=== PATIENT | female | born 1985 | race Hispanic/Latino ===

== ENCOUNTER 2019-11-28 19:53 | Emergency (ER) | payer OTHER ==
[2019-11-28 20:08] VITALS: BP 126/86
[2019-11-28] MEDS ORDERED: IPRATROPIUM/ALBUTEROL SULFATE 3 ML AMPUL.NEB IH ONE (20:27)
[2019-11-28] MEDS ORDERED: predniSONE 20 MG TAB PO ONE (20:27)
[2019-11-28] MEDS ORDERED: ACETAMINOPHEN 325 MG TAB PO ONE (20:27)
[2019-11-28 20:48] LABS: Basophils # (Auto) 0.1 K/mm3 (0.0-0.1); Basophils % (Auto) 0.7 % (0.0-1.8); Eosinophils # (Auto) 0.6 K/mm3 (0.0-0.4); Eosinophils % (Auto) 7.5 % (0.0-4.3); Hematocrit 40.9 % (30.3-42.9); Lymphocytes # (Auto) 1.3 K/mm3 (1.2-5.4); Lymphocytes % (Auto) 15.7 % (13.4-35.0); Mean Corpuscular HGB Conc 34 % (30-34); Mean Corpuscular Volume 93 fl (79-97); Monocytes # (Auto) 0.9 K/mm3 (0.0-0.8); Monocytes % (Auto) 10.6 % (0.0-7.3); Platelet Count 216 K/mm3 (140-440); Red Blood Count 4.39 M/mm3 (3.65-5.03); Red Cell Distribution Width 13.1 % (13.2-15.2)
--- NOTE | 2019-11-28 20:56 | XRay Report ---
CHEST 2 VIEWS INDICATION / CLINICAL INFORMATION: Chest pain, cough, wheezing, sore throat and back pain. Has been living in a molded infested [facility] for 2 months. COMPARISON: None available. FINDINGS: SUPPORT DEVICES: None. HEART / MEDIASTINUM: The heart size and pulmonary vasculature are normal. The aorta is normal in [place]. LUNGS / PLEURA: There is a small calcified granuloma in the left lung base posteromedially. The lungs are otherwise clear. No pneumothorax. ADDITIONAL FINDINGS: No significant additional findings. IMPRESSION: No acute findings. Signer Name: Rodriguez Walter MD Signed: 11/28/2019 8:51 PM Workstation Name: [id number]
[2019-11-28 21:11] LABS: Alanine Aminotransferase 10 units/L (7-56); Albumin 4.3 g/dL (3.9-5); BUN/Creatinine Ratio 14; Blood Urea Nitrogen 13 mg/dL (7-17); Calcium 8.7 mg/dL (8.4-10.2); Hemolysis Index 10
[2019-11-28 21:29] LABS: HCG Qualitative,Urine Negative (Negative)
[2019-11-28 21:32] LABS: Bacteria,Urine 1+ /HPF (Negative); Bilirubin,Urine NEG (Negative); Blood,Urine LG (Negative); Color,Urine Yellow (Yellow); Mucus,Urine 1+ /HPF; Urobilinogen,Urine < 2.0 mg/dL (<2.0)
--- NOTE | 2019-11-28 21:55 | Emergency Department Report ---
- General Chief Complaint: Upper Respiratory Infection Stated Complaint: COUGH, CHEST PAIN AND BACK PAIN PUI?: No Source: patient Mode of arrival: Ambulatory Limitations: No Limitations - History of Present Illness Initial Comments: Patient is a 34-year-old white female with past medical history of heavy tobacco abuse who presents to the ED with complaint of acute onset persistent nasal and sinus congestion, persistent dry cough with wheezing and shortness of breath and pleuritic chest pain for the last 2 days. Patient states that she was unable to sleep in the last 24 hours because of persistent cough and pleuritic chest pain. Patient also complains of lower back pain. Patient denies dizziness, syncope, fever, chills, palpitations, sore throat, abdominal pain, nausea, vomiting, diaphoresis, neck pain, change in vision or dysuria and urinary frequency and urgency or vaginal bleeding. MD Complaint: cough, rhinorrhea, nasal congestion, other (dyspnea, wheezing; pleuritic chest pain) -: Sudden, days(s) (2) Severity: moderate Severity scale (0 -10): 6 Quality: sharp, aching Consistency: intermittent Improves With: nothing Worsens With: deep breaths Associated Symptoms: denies other symptoms, headache, rhinorrhea, nasal congestion, cough, shortness of breath. denies: fever, chills, myalgias, diaphoresis, sore throat, stiff neck, chest pain, abdominal pain, nausea, vomiting, diarrhea, dysuria, rash, confusion, right sweats, weight loss, epistaxis, hoarseness, ear pain Treatments Prior to Arrival: none - Related Data Previous Rx's Medication Instructions Recorded Last Taken Type Albuterol Sulfate [Proventil Hfa] 1 - 2 puff IH Q4H PRN #1 hfa.aer.ad 11/28/19 Unknown Rx Azithromycin [Zithromax Z-VALENTE] 250 mg PO DAILY #6 tablet 11/28/19 Unknown Rx Benzonatate [Tessalon Perles] 100 mg PO Q8HR #30 capsule 11/28/19 Unknown Rx Ibuprofen [Motrin] 600 mg PO Q8H PRN #24 tablet 11/28/19 Unknown Rx predniSONE [Deltasone] 40 mg PO QDAY #10 tab 11/28/19 Unknown Rx Allergies Allergy/AdvReac Type Severity Reaction Status Date / Time No Known Allergies Allergy Unverified 09/11/20 20:12 ED Review of Systems ROS: Stated complaint: COUGH, CHEST PAIN AND BACK PAIN Other details as noted in HPI Constitutional: denies: chills, fever Eyes: denies: eye pain, eye discharge, vision change ENT: congestion. denies: ear pain, throat pain Respiratory: cough, shortness of breath, wheezing Cardiovascular: chest pain (Pleuritic). denies: palpitations Endocrine: no symptoms reported Gastrointestinal: denies: abdominal pain, nausea, vomiting, diarrhea Genitourinary: denies: urgency, dysuria, discharge Musculoskeletal: back pain (lower back), arthralgia, myalgia. denies: joint swelling Skin: denies: rash, lesions Neurological: denies: headache, weakness, paresthesias Psychiatric: denies: anxiety, depression Hematological/Lymphatic: denies: easy bleeding, easy bruising ED Past Medical Hx - Past Medical History Previous Medical History?: No - Surgical History Past Surgical History?: No - Social History Smoking Status: Current Every Day Smoker Substance Use Type: None - Medications Home Medications: Home Medications Medication Instructions Recorded Confirmed Last Taken Type Albuterol Sulfate [Proventil Hfa] 1 - 2 puff IH Q4H PRN #1 hfa.aer.ad 11/28/19 Unknown Rx Azithromycin [Zithromax Z-VALENTE] 250 mg PO DAILY #6 tablet 11/28/19 Unknown Rx Benzonatate [Tessalon Perles] 100 mg PO Q8HR #30 capsule 11/28/19 Unknown Rx Ibuprofen [Motrin] 600 mg PO Q8H PRN #24 tablet 11/28/19 Unknown Rx predniSONE [Deltasone] 40 mg PO QDAY #10 tab 11/28/19 Unknown Rx ED Physical Exam - General Limitations: No Limitations General appearance: alert, in no apparent distress - Head Head exam: Present: atraumatic, normocephalic, normal inspection - Eye Eye exam: Present: normal appearance, PERRL, EOMI Pupils: Present: normal accommodation - ENT ENT exam: Present: normal exam, normal orophraynx, mucous membranes moist, TM's normal bilaterally, normal external ear exam - Neck Neck exam: Present: normal inspection, full ROM - Respiratory Respiratory exam: Present: wheezes (Moderately diffuse coarse wheezes throughout). Absent: respiratory distress, rales, rhonchi, chest wall tenderness, accessory muscle use, decreased breath sounds - Cardiovascular Cardiovascular Exam: Present: regular rate, normal rhythm, normal heart sounds. Absent: systolic murmur, diastolic murmur, rubs, gallop - GI/Abdominal GI/Abdominal exam: Present: soft, normal bowel sounds. Absent: tenderness, guarding, rebound, hyperactive bowel sounds, hypoactive bowel sounds - Extremities Exam Extremities exam: Present: normal inspection, full ROM, normal capillary refill - Back Exam Back exam: Present: normal inspection, full ROM. Absent: tenderness, CVA tenderness (R), CVA tenderness (L), muscle spasm, paraspinal tenderness, vertebral tenderness - Neurological Exam Neurological exam: Present: alert, oriented X3, CN II-XII intact, normal gait, reflexes normal - Psychiatric Psychiatric exam: Present: normal affect, normal mood, anxious - Skin Skin exam: Present: warm, dry, intact, normal color. Absent: rash ED Course Vital Signs 11/28/19 20:04 Temperature 98.3 F Pulse Rate 93 H Respiratory 16 Rate Blood Pressure 126/86 O2 Sat by Pulse 99 Oximetry ED Medical Decision Making - Lab Data Result diagrams: 11/28/19 20:36 11/28/19 20:36 - Radiology Data Radiology results: report reviewed, [place] [address] XRay Report Signed Patient: RORY BRICE MR#: [id number] : 1985 Acct:[id number] Age/Sex: 34 / F ADM Date: 11/28/19 Loc: ED Attending Dr: Ordering Physician: ARPITA CORONEL MD Date of Service: 11/28/19 Procedure(s): XR chest routine 2V Accession Number(s): [id number] cc: ARPITA CORONEL MD Fluoro Time In Minutes: CHEST 2 VIEWS INDICATION / CLINICAL INFORMATION: Chest pain, cough, wheezing, sore throat and back pain. Has been living in a molded infested department for 2 months. COMPARISON: None available. FINDINGS: SUPPORT DEVICES: None. HEART / MEDIASTINUM: The heart size and pulmonary vasculature are normal. The aorta is normal in caliber. LUNGS / PLEURA: There is a small calcified granuloma in the left lung base posteromedially. The lungs are otherwise clear. No pneumothorax. ADDITIONAL FINDINGS: No significant additional findings. IMPRESSION: No acute findings. Signer Name: Rodriguez Walter MD Signed: 11/28/2019 8:51 PM Workstation Name: [id number] Transcribed By: RT Dictated By: Rodriguez Walter MD Electronically Authenticated By: Rodriguez Walter MD Signed Date/Time: 11/28/192050 DD/ 49 TD/TT: - Medical Decision Making This is a 34-year-old white female with past medical history of heavy tobacco abuse who presents to the ED with complaint of acute onset persistent nasal and sinus congestion, persistent dry cough with wheezing and shortness of breath and pleuritic chest pain for the last 2 days. Patient states that she was unable to sleep in the last 24 hours because of persistent cough and pleuritic chest pain. Patient also complains of lower back pain. In the ED, patient is alert and oriented x3 and is not in distress but appears anxious and paranoid. Chest x-ray shows no acute cardiopulmonary abnormalities or pneumonitis. Lab test results were reviewed and are all nonactionable. Patient received DuoNeb treatment in the ED and also treated for pain and also given oral prednisone. On reevaluation, patient's wheezing resolved with medications. Patient was discharged home on albuterol inhaler, oral steroids and cough medications and was advised to follow-up with her primary care physician in 5 to 7 days for reevaluation or return to the ED immediately if symptoms get worse. Patient was also encouraged to consider quitting tobacco abuse. - Differential Diagnosis Bronchitis; URI; Pneumonia; asthma Critical care attestation.: If time is entered above; I have spent that time in minutes in the direct care of this critically ill patient, excluding procedure time. ED Disposition Clinical Impression: Acute upper respiratory infection, Shortness of breath, Acute costochondritis Acute bronchitis Qualifiers: Bronchitis organism: other organism Qualified Code(s): J20.8 - Acute bronchitis due to other specified organisms Disposition: DC-01 TO HOME OR SELFCARE Is pt being admited?: No Does the pt Need Aspirin: No Condition: Stable Instructions: Acute Bronchitis (ED), Upper Respiratory Infection (ED), Costochondritis (ED), How to Stop Smoking (ED) Additional Instructions: All lab test results show no acute abnormalities. Chest x-ray shows no acute cardiopulmonary abnormalities or pneumonitis. Therefore take medications with food, drink plenty of fluids and follow-up with your primary care physician in 5 to 7 days for reevaluation. Consider quitting tobacco smoking to improve your breathing. Return to the ED immediately if symptoms get worse. Prescriptions: predniSONE [Deltasone] 40 mg PO QDAY #10 tab Ibuprofen [Motrin] 600 mg PO Q8H PRN #24 tablet PRN Reason: Pain Albuterol Sulfate [Proventil Hfa] 1 - 2 puff IH Q4H PRN #1 hfa.aer.ad PRN Reason: Wheezing Benzonatate [Tessalon Perles] 100 mg PO Q8HR #30 capsule Azithromycin [Zithromax Z-VALENTE] 250 mg PO DAILY #6 tablet Referrals: [facility] [Provider Group] - 3-5 Days Forms: Work/School Release Form(ED) Time of Disposition: 21:59 Print Language: SAMI
== END 2019-11-28 22:20 | disposition home or self-care (01) ==
LOC: ED 19:53
DX: J20.9 Acute bronchitis, unspecified (principal); J06.9 Acute upper respiratory infection, unspecified; M94.0 Chondrocostal junction syndrome [Tietze]; R06.02 Shortness of breath; F17.200 Nicotine dependence, unspecified, uncomplicated; Z79.1 Long term (current) use of non-steroidal anti-inflammatories (NSAID); Z79.2 Long term (current) use of antibiotics; Z79.899 Other long term (current) drug therapy
CPT/HCPCS: 36415; 71046; 80053; 81001; 81025; 84484; 85025; 93005; 94640; 99284; J7512

== ENCOUNTER 2019-12-01 05:07 | Observation (INO) | payer OTHER ==
[2019-12-01] MEDS ORDERED: ALBUTEROL 2.5 MG/3 ML NEBU IH ONE ×4 (05:24→07:51)
[2019-12-01] MEDS ORDERED: IPRATROPIUM 0.02% NEBU 2.5 ML IH ONE ×3 (05:25→06:14)
[2019-12-01] MEDS ORDERED: SODIUM CHLORIDE 0.9% 1000 ML 1,000 ML IV ONE (06:06)
[2019-12-01] MEDS ORDERED: MAGNESIUM SULFATE 2 GM/50 ML BAG IV ONE (06:06)
[2019-12-01] MEDS ORDERED: methylPREDNISolone Sod Succinate 125 MG/2 ML INJ IV ONE (06:07)
--- NOTE | 2019-12-01 06:10 | Emergency Department Report ---
<RASHID MEJIA - Last Filed: 12/01/19 06:49> ED Shortness of Breath HPI - General Chief Complaint: Dyspnea/Respdistress Stated Complaint: RADHA Time Seen by Provider: 12/01/19 06:00 Source: patient, EMS Mode of arrival: Stretcher Limitations: No Limitations - History of Present Illness Initial Comments: 34-year-old female presents to the emergency room for shortness of breath stridor. Patient admits to using his heroin and meth yesterday. Patient states that she was seen 2 days ago and left because she felt better. Patient states that she did not get her prescription as she left AMA. Onset/Timin -: days(s) Context: other (Doing heroin and smoking meth yesterday) Associated Symptoms: cough, sputum production Treatments Prior to Arrival: none - Related Data Home Oxygen Therapy: No Previous Rx's Medication Instructions Recorded Last Taken Type Albuterol Sulfate [Proventil Hfa] 1 - 2 puff IH Q4H PRN #1 hfa.aer.ad 11/28/19 Unknown Rx Azithromycin [Zithromax Z-VALENTE] 250 mg PO DAILY #6 tablet 11/28/19 Unknown Rx Benzonatate [Tessalon Perles] 100 mg PO Q8HR #30 capsule 11/28/19 Unknown Rx Ibuprofen [Motrin] 600 mg PO Q8H PRN #24 tablet 11/28/19 Unknown Rx predniSONE [Deltasone] 40 mg PO QDAY #10 tab 11/28/19 Unknown Rx Allergies Allergy/AdvReac Type Severity Reaction Status Date / Time No Known Allergies Allergy Verified 12/01/19 05:24 ED Review of Systems Comment: All other systems reviewed and negative ED Past Medical Hx - Past Medical History Previous Medical History?: Yes Hx Psychiatric Treatment: Yes (panic attacks) - Surgical History Past Surgical History?: No - Social History Smoking Status: Current Every Day Smoker Substance Use Type: Heroin, Methamphetamines - Medications Home Medications: Home Medications Medication Instructions Recorded Confirmed Last Taken Type Albuterol Sulfate [Proventil Hfa] 1 - 2 puff IH Q4H PRN #1 hfa.aer.ad 11/28/19 Unknown Rx Azithromycin [Zithromax Z-VALENTE] 250 mg PO DAILY #6 tablet 11/28/19 Unknown Rx Benzonatate [Tessalon Perles] 100 mg PO Q8HR #30 capsule 11/28/19 Unknown Rx Ibuprofen [Motrin] 600 mg PO Q8H PRN #24 tablet 11/28/19 Unknown Rx predniSONE [Deltasone] 40 mg PO QDAY #10 tab 11/28/19 Unknown Rx ED Physical Exam - General Limitations: No Limitations General appearance: alert, in distress - Head Head exam: Present: atraumatic, normocephalic - Eye Eye exam: Present: normal appearance, EOMI - ENT ENT exam: Present: mucous membranes moist - Neck Neck exam: Present: normal inspection, full ROM - Respiratory Respiratory exam: Present: wheezes, rhonchi, accessory muscle use, prolonged expiratory - Cardiovascular Cardiovascular Exam: Present: regular rate, normal rhythm. Absent: systolic murmur, diastolic murmur, rubs, gallop - GI/Abdominal GI/Abdominal exam: Present: soft, normal bowel sounds - Extremities Exam Extremities exam: Present: normal inspection, full ROM - Back Exam Back exam: Present: normal inspection, full ROM - Neurological Exam Neurological exam: Present: alert, oriented X3, normal gait - Psychiatric Psychiatric exam: Present: normal affect, normal mood - Skin Skin exam: Present: warm, dry, intact, normal color. Absent: rash ED Medical Decision Making - Medical Decision Making 41-year-old female presents to the emergency room complaining of right ear pain that started this morning approximately 3:30 AM. Patient states that she felt a pop. She reports decreased hearing in the right ear. 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 Patient states that she is allergic to clarithromycin and NSAIDs. Patient was given albuterol 5 mg Atrovent 0.5 mg. IV Solu-Medrol 125 mg, normal saline 1 L, magnesium 2 mg IV. ED Disposition Clinical Impression: Acute bronchitis, Wheezing, Methamphetamine abuse, Heroin abuse, Noncompliance with medication regimen, Smoker, Acute respiratory distress, Hypokalemia Disposition: -09 OP ADMIT IP TO THIS HOSP Condition: Stable <GERARDO FERNANDEZ - Last Filed: 12/01/19 08:29> ED Review of Systems ROS: Stated complaint: RADHA Other details as noted in HPI ED Course Vital Signs 12/01/19 12/01/19 12/01/19 01:28 01:30 01:32 Temperature Pulse Rate 53 L 53 L 53 L Pulse Rate [ Bilateral Throughout] Respiratory 22 18 21 Rate Respiratory Rate [Bilateral Throughout] Blood Pressure Blood Pressure [Left] O2 Sat by Pulse 100 100 100 Oximetry 12/01/19 12/01/19 12/01/19 01:34 01:36 01:38 Temperature Pulse Rate 53 L 52 L 52 L Pulse Rate [ Bilateral Throughout] Respiratory 21 17 21 Rate Respiratory Rate [Bilateral Throughout] Blood Pressure Blood Pressure [Left] O2 Sat by Pulse 100 100 100 Oximetry 12/01/19 12/01/19 12/01/19 01:40 01:42 01:44 Temperature Pulse Rate 53 L 52 L 51 L Pulse Rate [ Bilateral Throughout] Respiratory 20 18 19 Rate Respiratory Rate [Bilateral Throughout] Blood Pressure Blood Pressure [Left] O2 Sat by Pulse 100 100 100 Oximetry 12/01/19 12/01/19 12/01/19 01:46 01:48 01:50 Temperature Pulse Rate 50 L 52 L 53 L Pulse Rate [ Bilateral Throughout] Respiratory 19 19 17 Rate Respiratory Rate [Bilateral Throughout] Blood Pressure Blood Pressure [Left] O2 Sat by Pulse 100 100 100 Oximetry 12/01/19 12/01/19 12/01/19 01:52 01:54 01:56 Temperature Pulse Rate 49 L 51 L 51 L Pulse Rate [ Bilateral Throughout] Respiratory 19 17 13 Rate Respiratory Rate [Bilateral Throughout] Blood Pressure Blood Pressure [Left] O2 Sat by Pulse 100 100 99 Oximetry 12/01/19 12/01/19 12/01/19 01:58 02:00 02:02 Temperature Pulse Rate 54 L 51 L 51 L Pulse Rate [ Bilateral Throughout] Respiratory 17 18 18 Rate Respiratory Rate [Bilateral Throughout] Blood Pressure Blood Pressure [Left] O2 Sat by Pulse 97 98 100 Oximetry 12/01/19 12/01/19 12/01/19 02:04 02:06 02:08 Temperature Pulse Rate 52 L 52 L 51 L Pulse Rate [ Bilateral Throughout] Respiratory 18 16 21 Rate Respiratory Rate [Bilateral Throughout] Blood Pressure Blood Pressure [Left] O2 Sat by Pulse 99 99 99 Oximetry 12/01/19 12/01/19 12/01/19 02:10 02:11 02:12 Temperature Pulse Rate 54 L 54 L 54 L Pulse Rate [ Bilateral Throughout] Respiratory 18 20 22 Rate Respiratory Rate [Bilateral Throughout] Blood Pressure 212/92 212/92 Blood Pressure [Left] O2 Sat by Pulse 97 98 100 Oximetry 12/01/19 12/01/19 12/01/19 02:14 05:28 05:29 Temperature 98.3 F Pulse Rate 51 L Pulse Rate [ 95 H Bilateral Throughout] Respiratory 22 Rate Respiratory 16 Rate [Bilateral Throughout] Blood Pressure 212/92 Blood Pressure [Left] O2 Sat by Pulse 98 Oximetry 12/01/19 12/01/19 12/01/19 06:15 06:45 08:07 Temperature Pulse Rate 90 Pulse Rate [ 89 79 Bilateral Throughout] Respiratory 22 Rate Respiratory 20 22 Rate [Bilateral Throughout] Blood Pressure Blood Pressure 146/93 [Left] O2 Sat by Pulse 98 Oximetry ED Medical Decision Making - Lab Data Result diagrams: 12/01/19 07:24 12/01/19 07:24 Lab Results 12/01/19 12/01/19 Range/Units 07:24 07:24 WBC 10.0 (4.5-11.0) K/mm3 RBC 4.10 (3.65-5.03) M/mm3 Hgb 13.1 (10.1-14.3) gm/dl Hct 37.7 (30.3-42.9) % MCV 92 (79-97) fl MCH 32 (28-32) pg MCHC 35 H (30-34) % RDW 13.3 (13.2-15.2) % Plt Count 216 (140-440) K/mm3 Lymph % (Auto) 8.2 L (13.4-35.0) % [place] % (Auto) 4.5 (0.0-7.3) % Eos % (Auto) 2.9 (0.0-4.3) % Baso % (Auto) 0.8 (0.0-1.8) % Lymph # 0.8 L (1.2-5.4) K/mm3 [place] # 0.5 (0.0-0.8) K/mm3 Eos # 0.3 (0.0-0.4) K/mm3 Baso # 0.1 (0.0-0.1) K/mm3 Seg Neutrophils % 83.6 H (40.0-70.0) % Seg Neutrophils # 8.4 H (1.8-7.7) K/mm3 Sodium 142 (137-145) mmol/L Potassium 3.4 L (3.6-5.0) mmol/L Chloride 103.6 (98-107) mmol/L Carbon Dioxide 22 (22-30) mmol/L Anion Gap 20 mmol/L BUN 11 (7-17) mg/dL Creatinine 0.7 (0.6-1.2) mg/dL Estimated GFR > 60 ml/min BUN/Creatinine Ratio 16 % Glucose 139 H (65-100) mg/dL Calcium 8.5 (8.4-10.2) mg/dL - Radiology Data Radiology results: report reviewed CHEST 1 VIEW INDICATION: sob rhonchus wheezing. COMPARISON: 11/28/2019 FINDINGS: Support devices: None. Heart: Within normal limits. Lungs/Pleura: The lungs are hyperinflated but clear. No pleural effusion or pneumothorax. Additional findings: None. IMPRESSION: No acute findings. - Medical Decision Making Patient continues to have significant wheezing despite ED treatment of multiple doses of albuterol, Atrovent, IV magnesium, Solu-Medrol, and subcu epinephrine. She presented several days ago with similar symptoms. Chest x-ray once again is unremarkable. Labs of a mild hypokalemia likely secondary to albuterol. P.o. potassium ordered. Patient will be admitted to the hospital due to persistent expiratory wheezing. No stridor on exam Critical Care Time: No Critical care attestation.: If time is entered above; I have spent that time in minutes in the direct care of this critically ill patient, excluding procedure time. ED Disposition Is pt being admited?: Yes Time of Disposition: 08:29 (Adelfo brito)
[2019-12-01] MEDS ORDERED: EPINEPHrine/PF 1 MG/1 ML INJ SUB-Q ONE (06:51)
[2019-12-01 07:42] LABS: Basophils # (Auto) 0.1 K/mm3 (0.0-0.1); Basophils % (Auto) 0.8 % (0.0-1.8); Eosinophils # (Auto) 0.3 K/mm3 (0.0-0.4); Eosinophils % (Auto) 2.9 % (0.0-4.3); Hematocrit 37.7 % (30.3-42.9); Hemoglobin 13.1 gm/dl (10.1-14.3); Lymphocytes # (Auto) 0.8 K/mm3 (1.2-5.4); Lymphocytes % (Auto) 8.2 % (13.4-35.0); Mean Corpuscular HGB Conc 35 % (30-34); Mean Corpuscular Volume 92 fl (79-97); Monocytes # (Auto) 0.5 K/mm3 (0.0-0.8); Monocytes % (Auto) 4.5 % (0.0-7.3); Platelet Count 216 K/mm3 (140-440); Red Cell Distribution Width 13.3 % (13.2-15.2)
--- NOTE | 2019-12-01 07:49 | XRay Report ---
CHEST 1 VIEW INDICATION: sob rhonchus wheezing. COMPARISON: 11/28/2019 FINDINGS: Support devices: None. Heart: Within normal limits. Lungs/Pleura: The lungs are hyperinflated but clear. No pleural effusion or pneumothorax. Additional findings: None. IMPRESSION: No acute findings. Signer Name: Wu Joshi Jr, MD Signed: 12/01/2019 7:45 AM Workstation Name: [id number]
[2019-12-01 07:59] LABS: Blood Urea Nitrogen 11 mg/dL (7-17); Calcium 8.5 mg/dL (8.4-10.2); Hemolysis Index 5
[2019-12-01 08:10] LABS: BUN/Creatinine Ratio 16
[2019-12-01] MEDS ORDERED: POTASSIUM CHLORIDE ER 20 MEQ TAB PO ONE ×2 (08:22→10:25)
[2019-12-01] MEDS ORDERED: diphenhydrAMINE 50 MG/ML VIAL IV PRN (09:17)
--- NOTE | 2019-12-01 09:22 | History and Physical Report ---
History of Present Illness Date of examination: 12/01/19 Date of admission: 12/01/19 08:30 Chief complaint: Shortness of breath History of present illness: 32-year-old female without any significant past medical history except for heroin abuse and methamphetamine abuse presents to the ED with a chief complaint of shortness of breath and productive cough for 3 to 4 days. Patient with presented to the ED several days ago but left AMA prior to treatment because she states she felt better. Patient then returned and did more methamphetamine and heroin now presents back with similar complaints including productive cough shortness of breath. Patient denies any immediate sick contacts. States she has mold in her house but her boyfriend does not get sick and has not had any symptoms. Patient denies being around anyone with fever or any coronavirus contact. Patient denies withdrawals. Patient states she stopped smoking when this happened several days ago. Patient denies any fever chills denies any recent travel. Denies any chest pain any back pain. Has had some nausea but not at present. Past History Past Medical History: denies: acute IL, atrial fib, arrhythmia, anemia, arthritis, CAD, cancer, COPD, diabetes, GERD, heart failure, HIV/AIDS, hypertension, pulmonary embolism, renal failure, seizures Past Surgical History: No surgical history Social history: single, lives with family, smoking, other (Methamphetamine and heroin). denies: alcohol abuse, prescription drug abuse Family history: no significant family history Medications and Allergies Allergies Allergy/AdvReac Type Severity Reaction Status Date / Time No Known Allergies Allergy Verified 12/01/19 05:24 Home Medications Medication Instructions Recorded Confirmed Last Taken Type Albuterol Sulfate [Proventil Hfa] 1 - 2 puff IH Q4H PRN #1 [id number].[id number] 11/28/19 Unknown Rx Azithromycin [Zithromax Z-VALENTE] 250 mg PO DAILY #6 tablet 11/28/19 Unknown Rx Benzonatate [Tessalon Perles] 100 mg PO Q8HR #30 capsule 11/28/19 Unknown Rx Ibuprofen [Motrin] 600 mg PO Q8H PRN #24 tablet 11/28/19 Unknown Rx predniSONE [Deltasone] 40 mg PO QDAY #10 tab 11/28/19 Unknown Rx Active Meds: Active Medications Albuterol/Ipratropium (Duoneb *Not For Prn Use*) 1 ampul [facility] Q6HRT [facility] Diphenhydramine HCl (Benadryl) 25 mg IV Q6H PRN PRN Reason: Itching Azithromycin 500 mg/ Sodium (Chloride) 250 mls @ 250 mls/hr IV Q24HR [facility]; Protocol Lorazepam (Ativan) 1 mg IV Q4H PRN PRN Reason: Agitation Methylprednisolone Sodium Succinate (Solu-Medrol) 40 mg IV Q8HR [facility] Review of Systems Constitutional: sweats, night sweats, fatigue, weakness, malaise, no weight loss, no weight gain, no fever, no chills, no anorexia, no lethargy, no chronic headaches, no poor appetite, no daytime sleepiness, no chronic pain Ears, nose, mouth and throat: hoarseness, no ear discharge, no decreased hearing, no nasal congestion, no bleeding gums, no dysphagia, no headache, no vertigo, no pain front of neck, no neck fullness/pressure Breasts: deferred Cardiovascular: shortness of breath, dyspnea on exertion, no chest pain, no orthopnea, no palpitations, no rapid/irregular heart beat, no edema, no syncope, no lightheadedness, no paroxysmal nocturnal dyspnea, no claudication, no phlebitis, no leg edema Respiratory: cough, cough with sputum, shortness of breath, dyspnea on exertion, congestion, no excessive sputum, no hemoptysis, no wheezing, no pleurisy, no pain, no pain on inspiration, no snoring, no sleep apnea, no respiratory infections, no home oxygen Gastrointestinal: nausea, no abdominal pain, no vomiting, no diarrhea, no constipation, no hematemesis, no loss of appetite, no early satiety, no heartburn Musculoskeletal: no shooting arm pain, no low back pain, no shooting leg pain, no leg numbness/tingling, no muscle weakness, no muscle cramps, no limitation of motion, no loss of height, no prior amputations, no arthritis Integumentary: no unusual bruising Neurological: other (Agitation), no transient paralysis, no weakness, no numbness, no seizures, no headaches, no convulsions, no change in speech, no gait dysfunction, no double vision, no loss of vision, no burning pain, no spasticity Psychiatric: anxiety, insomnia, change in appetite, change in libido, no memory loss, no change in sleep habits, no sleep disturbances, no hypersomnia, no suicidal ideation, no disorientation, no hallucinations, no anhedonia, no anxiety attacks, no difficulties concentrating, no confusion, no sa dness/tearfullness, no mood swings Endocrine: no cold intolerance, no polyphagia, no polydipsia, no increase in ring/shoe/hat size, no deepening of the voice, no palpatations, no high blood sugars, no recent glucocorticoid use Hematologic/Lymphatic: no lymphadenopathy, no lymphedema, no thrombophilia Allergic/Immunologic: no allergic rhinitis, no seasonal allergies, no other Exam - Constitutional Vitals: Temp Pulse Resp BP Pulse Ox 98.3 F 90 20 142/93 98 12/01/19 05:28 12/01/19 08:52 12/01/19 08:52 12/01/19 08:52 12/01/19 08:52 General appearance: Present: no acute distress, well-nourished - EENT Eyes: Present: PERRL ENT: hearing intact, clear oral mucosa - Neck Neck: Present: supple, normal ROM - Respiratory Respiratory effort: labored, stridor Respiratory: bilateral: CTA, diminished, wheezing - Cardiovascular Heart Sounds: Present: S1 & S2. Absent: rub, click - Extremities Extremities: pulses symmetrical, No edema Peripheral Pulses: within normal limits - Abdominal General gastrointestinal: Present: soft, non-tender, non-distended, normal bowel sounds Female genitourinary: Present: normal - Integumentary Integumentary: Present: clear, warm, dry - Musculoskeletal Musculoskeletal: gait normal, strength equal bilaterally - Psychiatric Psychiatric: appropriate mood/affect, intact judgment & insight - Neurologic Neurologic: CNII-XII intact, moves all extremities Results - Labs CBC & Chem 7: 12/01/19 07:24 12/01/19 07:24 Labs: Laboratory Last Values WBC 10.0 K/mm3 (4.5-11.0) 12/01/19 07:24 RBC 4.10 M/mm3 (3.65-5.03) 12/01/19 07:24 Hgb 13.1 gm/dl (10.1-14.3) 12/01/19 07:24 Hct 37.7 % (30.3-42.9) 12/01/19 07:24 MCV 92 fl (79-97) 12/01/19 07:24 MCH 32 pg (28-32) 12/01/19 07:24 MCHC 35 % (30-34) H 12/01/19 07:24 RDW 13.3 % (13.2-15.2) 12/01/19 07:24 Plt Count 216 K/mm3 (140-440) 12/01/19 07:24 Lymph % (Auto) 8.2 % (13.4-35.0) L 12/01/19 07:24 [place] % (Auto) 4.5 % (0.0-7.3) 12/01/19 07:24 Eos % (Auto) 2.9 % (0.0-4.3) 12/01/19 07:24 Baso % (Auto) 0.8 % (0.0-1.8) 12/01/19 07:24 Lymph # 0.8 K/mm3 (1.2-5.4) L 12/01/19 07:24 [place] # 0.5 K/mm3 (0.0-0.8) 12/01/19 07:24 Eos # 0.3 K/mm3 (0.0-0.4) 12/01/19 07:24 Baso # 0.1 K/mm3 (0.0-0.1) 12/01/19 07:24 Seg Neutrophils % 83.6 % (40.0-70.0) H 12/01/19 07:24 Seg Neutrophils # 8.4 K/mm3 (1.8-7.7) H 12/01/19 07:24 Sodium 142 mmol/L (137-145) 12/01/19 07:24 Potassium 3.4 mmol/L (3.6-5.0) L 12/01/19 07:24 Chloride 103.6 mmol/L (98-107) 12/01/19 07:24 Carbon Dioxide 22 mmol/L (22-30) 12/01/19 07:24 Anion Gap 20 mmol/L 12/01/19 07:24 BUN 11 mg/dL (7-17) 12/01/19 07:24 Creatinine 0.7 mg/dL (0.6-1.2) 12/01/19 07:24 Estimated GFR > 60 ml/min 12/01/19 07:24 BUN/Creatinine Ratio 16 % 12/01/19 07:24 Glucose 139 mg/dL (65-100) H 12/01/19 07:24 Calcium 8.5 mg/dL (8.4-10.2) 12/01/19 07:24 - Imaging and Cardiology Chest x-ray: report reviewed, image reviewed Hernandez/IV: IV Catheter Type [Left Peripheral IV Antecubital] Assessment and Plan Advance Directives: Yes VTE prophylaxis?: Chemical Plan of care discussed with patient/family: Yes - Patient Problems (1) Acute bronchitis Current Visit: Yes Status: Acute Plan to address problem: Patient presents with acute bronchitis. This is evidenced by patient's productive cough on exam and unremarkable chest x-ray. Will treat with azithromycin IV daily. Patient has significant wheezing stridor could be secondary to underlying asthma exacerbation versus allergen contact. Empiric IV antibiotics azithromycin IV Solu-Medrol. IV Pepcid PRN Benadryl Follow-up serial chest x-ray Aggressive nebulizer treatment albuterol Atrovent Smoking cessation patient does not want nicotine patch (2) Acute respiratory distress Current Visit: Yes Status: Acute Plan to address problem: Secondary to acute bronchitis and possible allergen exposure with stridor. P atient has received epinephrine. Received magnesium IV currently hemodynamically stable satting well but has some stridor and mild distress. Some appears to be anxiety We will add IV Ativan for anxiety from dyspnea as well as possible drug withdrawal. (3) Heroin abuse Current Visit: Yes Status: Acute Plan to address problem: Long discussion with patient about the effects of heroin and methamphetamine on the body lungs and brain. After long talk patient states she wishes to go to a drug rehab center however her reply was not very enthusiastic. (4) Hypokalemia Current Visit: Yes Status: Acute Plan to address problem: Secondary to nebulizer treatments very mild treated in ED. (5) Methamphetamine abuse Current Visit: Yes Status: Acute Plan to address problem: Discussed transfer to an inpatient rehab facility such as [place]. (6) Noncompliance with medication regimen Current Visit: Yes Status: Acute (7) Smoker Current Visit: Yes Status: Acute Plan to address problem: Patient refuses nicotine patch states she is not had problem since stopping several days ago.
[2019-12-01] MEDS ORDERED: FAMOTIDINE 20 MG/2 ML INJ IV SCH (10:00)
[2019-12-01] MEDS ORDERED: FAMOTIDINE 20 MG/2 ML INJ IV ONE (10:25)
[2019-12-01] MEDS ORDERED: AZITHROMYCIN 500 MG in SODIUM CHLORIDE 0.9% 250ML 250 ML IV SCH (11:00)
[2019-12-01] MEDS: IPRATROPIUM/ALBUTEROL SULFATE 3 ML AMPUL.NEB IH SCH ×2 (11:38→14:27)
[2019-12-01] MEDS: LORazepam 2 MG/ML VIAL IV PRN ×2 (12:42→16:33)
[2019-12-01] MEDS ORDERED: methylPREDNISolone Sod Succinate 40 MG/1 ML INJ IV SCH (14:00)
[2019-12-01 18:36] VITALS: BP 132/79
[2019-12-02] MEDS ORDERED: FAMOTIDINE 20 MG TAB PO SCH (10:00)
== END 2019-12-01 18:40 | disposition left against medical advice (07) ==
LOC: ED 05:07 → 3A 08:30
PROVIDERS: ADMIT Internal Medicine; ATTEND Internal Medicine
DX: J20.9 Acute bronchitis, unspecified (principal); R06.03 Acute respiratory distress; F11.10 Opioid abuse, uncomplicated; E87.6 Hypokalemia; F41.0 Panic disorder [episodic paroxysmal anxiety]; F15.10 Other stimulant abuse, uncomplicated; F17.200 Nicotine dependence, unspecified, uncomplicated; Z91.14 Patient's other noncompliance with medication regimen; Z71.6 Tobacco abuse counseling; Z79.899 Other long term (current) drug therapy
CPT/HCPCS: 36415; 71045; 80048; 85025; 94640; 94644; 96365; 96367; 96372; 96375; 96376; 99285; 99406; G0378; J0171; J0456; J2060; J2920; J2930; J3475; J7030; J7050